=== PATIENT | female | born 1975 | race Caucasian/White ===

== ENCOUNTER 2016-03-26 09:52 | Emergency (ER) | payer OTHER, MEDICARE ==
[~2016-03-26] VITALS: Ht 152.4 cm; Wt 83.0 kg
[~2016-03-26 09:52] MED LIST: AFRIN PUMPMIST15 ML NASB; ALBUTEROL0.09 MG/A1 INH; AMOXIL 875 MG875 MG PO; AZITHROMYCIN250 M1 PO; BENZONATATE200 MG PO; BENZTROPINE MESY1 M1 PO; BENZTROPINE1 MG PO; CORTISPORIN 1%-10 M1 AS; DAILY MULTIPLE1 EACH PO; FERROUS SULFAT325 M3 PO; FLU VACCINE 0.0.5 ML IM; GABAPENTIN300 M2 PO; IBUPROFEN600 M1 PO; INTEGRA-F1 CAP PO; LATUDA20 M1 PO; LATUDA60 M1 PO; LATUDA80 MG PO; MAGNESIUM250 M2 PO; MEDROL 2 MG TABL2 MG PO; MEDROL DOSEPAK1 PAC PO; METFORMIN HCL500 M4 PO; METFORMIN HYDR500 M1 PO; MOBIC15 M1 PO; MOBIC15 MG PO; NORFLEX100 MG PO; NOVAPLUS V0.09 MG/Ac INH; PREDNICOT20 MG PO; PREDNISONE 20MG20 MG PO; PROVENTIL0.09 MG/A1 INH; ROBITUSSIN AC SY5 ML PO; ROBITUSSIN W/CO10 ML PO; SYNTHROID112 MCG PO; SYNTHROID125 MCG PO; TESSALON PERLE100 MG PO; TUMS500 MG PO; VITAMIN D250000 UNIT PO; VITAMIN D50000 IU PO; VOLTAREN75 MG PO; ZITHROMAX Z-PA250 M1 PO
[2016-03-26 09:55] VITALS: BP 100/68
--- NOTE | 2016-03-26 10:02 | ED GENERAL ADULT ---
History of Present Illness General Chief Complaint: Upper Respiratory Sx/Fever Stated Complaint: "I HAVE A COLD" Source: patient Exam Limitations: no limitations Vital Signs & Intake/Output Vital Signs & Intake/Output Vital Signs Date Time Temp Pulse Resp B/P Pulse O2 O2 Flow FiO2 Ox Delivery Rate 03/26 0955 97.7 66 20 100/68 98 Room Air Allergies Coded Allergies: aripiprazole (UNKNOWN 06/21/15) ascorbic acid ((FROM SMOKERS) 06/21/15) vitamin E (d-alpha tocopherol) (VITAMIN E) ((FROM SMOKERS) 06/21/15) Uncoded Allergies: DUST (DIFFICULTY BREATHING 01/05/14) PEANUT BUTTER (UNKNOWN- PT SAYS SHE DOES EAT PEANUTS 04/11/14) Reconcile Medications Azithromycin (Zithromax) 250 MG TABLET 1 DP PO AD brochitis 2 the first day followed by 1 for days 2-5 Benztropine Mesylate 1 MG TABLET 1 TAB PO BID MENTAL HEALTH (Reported) Ergocalciferol (Vitamin D2) (Vitamin D2) 50,000 UNIT CAPSULE 1 CAP PO Q 2 WEEKS SUPPLEMENT (Reported) Ferrous Sulfate 325 MG (65 MG IRON) TABLET 1 TAB PO DAILY SUPPLEMENT ( Reported) Gabapentin 300 MG CAPSULE 1 CAP PO BID MENTAL HEALTH (Reported) Ibuprofen 600 MG TABLET 1 TAB PO TID PRN PAIN (Reported) with food Levothyroxine Sodium (Synthroid) 125 MCG TABLET 1 TAB PO DAILY AC THYROID ( Reported) Lurasidone HCl (Latuda) 20 MG TABLET 1 TAB PO QPM MENTAL HEALTH (Reported) LURASIDONE HCL (Latuda) 40 MG TABLET 1 TAB PO QPM MENTAL HEALTH (Reported) Magnesium Oxide (Magnesium) 250 MG TABLET 1 TAB PO DAILY SUPPLEMENT (Reported ) Meloxicam (Mobic) 15 MG TABLET 1 TAB PO DAILY PRN PAIN/INFLAMMATION Metformin HCl (Metformin HCl ER) 500 MG TAB.ER.24H 1 TAB PO 1800 DIABETES ( Reported) Multivitamin (Daily Multiple Vitamin) 1 EACH TABLET 1 TAB PO DAILY SUPPLEMENT (Reported) Triage Note: PT TO ED STATES "I HAVE A COLD" X 1 MONTH. HAS BEEN TAKING OTC MEDS WITH SOME RELIEF. DID NOT CALL PCP. Triage Nurses Notes Reviewed? yes Onset: Abrupt Duration: week(s): Timing: recent history : No Patient currently breastfeeds: No HPI: 03/26/16 10:44 am This is a 40-year-old female who presents to the emergency department with cough congestion and malaise has been going on for approximately 4 weeks. She has a past medical history of thyroid cancer and anxiety. She also has psychiatric issues according to the patient. she denies chest pain difficulty breathing fever or significant yellow sputum production. She does not smoke and has no possibility of according to the patient. She denies any drug allergies. She does have a sore throat. On physical exam she has some nasal congestion. Lungs are essentially clear. The onset of the symptoms were abrupt , the duration has been for weeks, the severity is significant as her symptoms required her to come to the emergency department for care. She was treated with a single dose of Decadron and placed on a Z-Chandan and will follow up with her doctor in the next week if she is not better Past History Travel History Traveled to [facility] past 21 day No Medical History Any Pertinent Medical History? see below for history Neurological: NONE EENT: NONE Cardiovascular: NONE Respiratory: asthma Gastrointestinal: GERD Hepatic: NONE Renal: NONE Musculoskeletal: BACK PAIN Psychiatric: bipolar disease, depression, schizo affective disorder, ptsd Endocrine: hypothyroidism Blood Disorders: NONE Cancer(s): thyroid cancer History of MRSA: No History of VRE: No History of CDIFF: No Tetanus Vaccine: 10/15/12 Surgical History Surgical History: THYROIDECTOMY Psychosocial History Who do you live with Family Services at Home None What is your primary language Hebrew Tobacco Use: Never used ETOH Use: denies use Illicit Drug Use: denies illicit drug use Family History Hx Contributory? No Review of Systems Review of Systems Constitutional: Denies: fever. EENTM: Reports: nasal congestion. Denies: visual changes. Respiratory: Denies: short of breath, sputum production. Cardiovascular: Denies: chest pain. GI: Reports: no symptoms. Genitourinary: Reports: no symptoms. Musculoskeletal: Reports: no symptoms. Skin: Reports: no symptoms. Neurological/Psychological: Reports: no symptoms. Hematologic/Endocrine: Reports: no symptoms. Immunologic/Allergic: Reports: no symptoms. Physical Exam Physical Exam General Appearance: well developed/nourished, alert, awake, anxious, mild distress Head: atraumatic, normal appearance Eyes: Bilateral: normal appearance, PERRL, EOMI. Ears, Nose, Throat: pharyngeal erythema, nasal congestion Neck: normal inspection, supple, full range of motion Respiratory: normal breath sounds, chest non-tender, no respiratory distress Cardiovascular: regular rate/rhythm Peripheral Pulses: 4+ radial (R), 4+ radial (L) Gastrointestinal: soft, non-tender Back: normal inspection, normal range of motion Extremities: normal inspection, normal range of motion Neurologic/Psych: no motor/sensory deficits, awake, alert, oriented x 3 Skin: intact, normal color, warm/dry Core Measures ACS in differential dx? No CVA/TIA Diagnosis: No Severe Sepsis Present: No Septic Shock Present: No Progress Differential Diagnoses I considered the following diagnoses in my evaluation of the patient: [ Bronchitis, pneumonia, asthma, allergic reaction] Plan of Care: Current Medications Sig/Irene Start time Last Medication Dose Stop Time Status Admin Dexamethasone 8 MG ONCE ONE 03/26 1045 UNVr (Decadron) 03/26 1046 Initial ED EKG: none Departure Departure Disposition: HOME OR SELF CARE Condition: Stable Clinical Impression Primary Impression: Bronchitis Referrals: RUTH JIMÉNEZ MD (PCP/Family) Departure Forms: Customer Survey General Discharge Information Prescriptions: Current Visit Scripts Azithromycin (Zithromax) 1 DP PO AD #6 TAB 2 the first day followed by 1 for days 2-5 Critical Care Note Critical Care Note Critical Care Time: non-applicable
[2016-03-26] MEDS ORDERED: ZITHROMAX250 M2 PO (10:47)
== END 2016-03-26 10:52 ==
LOC: ERH 09:52
DX: J40 Bronchitis, not specified as acute or chronic (principal)

== ENCOUNTER 2016-05-11 13:59 | Emergency (ER) | payer OTHER, MEDICARE ==
[~2016-05-11 13:59] MED LIST changes: +ZITHROMAX250 M2 PO
[2016-05-11 14:07] VITALS: BP 113/72
--- NOTE | 2016-05-11 15:10 | RADIOLOGY REPORT ---
EXAMINATION: Right index finger. CLINICAL INFORMATION: Pain in the index finger. COMPARISON: None TECHNIQUE: Three views of the right index finger. FINDINGS: No fracture. No dislocation. Bone and joint is normal. No soft tissue abnormality. IMPRESSION: Normal right index finger.
--- NOTE | 2016-05-11 15:58 | ED UPPER/LOWER EXTREMITY COMPL ---
History of Present Illness General Chief Complaint: Hand or Wrist Injury Stated Complaint: FINGER PAIN Source: patient Exam Limitations: no limitations Vital Signs & Intake/Output Vital Signs & Intake/Output Vital Signs Date Time Temp Pulse Resp B/P Pulse O2 O2 Flow FiO2 Ox Delivery Rate 05/11 1407 97.7 84 20 113/72 99 Room Air Allergies Coded Allergies: aripiprazole (UNKNOWN 06/21/15) ascorbic acid ((FROM SMOKERS) 06/21/15) vitamin E (d-alpha tocopherol) (VITAMIN E) ((FROM SMOKERS) 06/21/15) Uncoded Allergies: DUST (DIFFICULTY BREATHING 01/05/14) PEANUT BUTTER (UNKNOWN- PT SAYS SHE DOES EAT PEANUTS 04/11/14) Reconcile Medications Azithromycin (Zithromax) 250 MG TABLET 1 DP PO AD brochitis 2 the first day followed by 1 for days 2-5 Benztropine Mesylate 1 MG TABLET 1 TAB PO BID MENTAL HEALTH (Reported) Ergocalciferol (Vitamin D2) (Vitamin D2) 50,000 UNIT CAPSULE 1 CAP PO Q 2 WEEKS SUPPLEMENT (Reported) Ferrous Sulfate 325 MG (65 MG IRON) TABLET 1 TAB PO DAILY SUPPLEMENT ( Reported) Gabapentin 300 MG CAPSULE 1 CAP PO BID MENTAL HEALTH (Reported) Ibuprofen 600 MG TABLET 1 TAB PO TID PRN PAIN (Reported) with food Levothyroxine Sodium (Synthroid) 125 MCG TABLET 1 TAB PO DAILY AC THYROID ( Reported) Lurasidone HCl (Latuda) 20 MG TABLET 1 TAB PO QPM MENTAL HEALTH (Reported) LURASIDONE HCL (Latuda) 40 MG TABLET 1 TAB PO QPM MENTAL HEALTH (Reported) Magnesium Oxide (Magnesium) 250 MG TABLET 1 TAB PO DAILY SUPPLEMENT (Reported ) Meloxicam (Mobic) 15 MG TABLET 1 TAB PO DAILY PRN PAIN/INFLAMMATION Metformin HCl (Metformin HCl ER) 500 MG TAB.ER.24H 1 TAB PO 1800 DIABETES ( Reported) Multivitamin (Daily Multiple Vitamin) 1 EACH TABLET 1 TAB PO DAILY SUPPLEMENT (Reported) Triage Note: PT PRESENTS TO ER FOR RIGHT INDEX FINGER PAIN SINCE WEDNESDAY. PT STATES SHE SLAMMED HER FINGER INTO THE CAR DOOR. PT STATES SHE TOOK IBUPROFEN WHEN IT HAPPEN BUT HAS NOT TAKEN ANYTHING SINCE THE INJURY. PT STATES FINGER IS PAINFUL TO MOVE. PT REFUSED PAIN MEDS AT TRIAGE Triage Nurses Notes Reviewed? yes Onset: Abrupt Duration: constant Timing: recent history Severity: moderate Severity Numbers: 5 Method of Injury: direct blow : No Patient currently breastfeeds: No HPI: Patient is a 40-year-old female who presents emergency room stating that she accidentally closed the car door and struck the this last picked of her right second digit resulting acute onset of pain. Skin is intact patient was taking ibuprofen 2 days ago with relief of symptoms. Patient is concerned of generalized paresthesia to the trauma site Pain is worse with finger movements. No nail involvement. Patient is right arm dominant. (CLAUDIA HARTLEY) Past History Travel History Traveled to [place] past 21 day No Medical History Any Pertinent Medical History? see below for history Neurological: NONE EENT: NONE Cardiovascular: NONE Respiratory: asthma Gastrointestinal: GERD Hepatic: NONE Renal: NONE Musculoskeletal: BACK PAIN Psychiatric: bipolar disease, depression, schizo affective disorder, ptsd Endocrine: hypothyroidism Blood Disorders: NONE Cancer(s): thyroid cancer History of MRSA: No History of VRE: No History of CDIFF: No Tetanus Vaccine: 10/15/12 Surgical History Surgical History: THYROIDECTOMY Psychosocial History Who do you live with Family Services at Home None What is your primary language Albanian Tobacco Use: Never used Family History Hx Contributory? No (CLAUDIA HARTLEY) Review of Systems Review of Systems Constitutional: Reports: no symptoms. EENTM: Reports: no symptoms. Respiratory: Reports: no symptoms. Cardiovascular: Reports: no symptoms. Gastrointestinal/Abdominal: Reports: no symptoms. Genitourinary: Reports: no symptoms. Musculoskeletal: Reports: see HPI, joint pain. Skin: Reports: no symptoms. Neurological/Psychological: Reports: see HPI, paresthesia. Hematologic/Endocrine: Reports: no symptoms. Immunological: Reports: no symptoms. All Other Systems: Reviewed and Negative (CLAUDIA HARTLEY) Physical Exam Physical Exam General Appearance: no apparent distress, alert Neurologic/Tendon: normal sensation, normal motor functions, normal tendon functions, responds to pain, no evidence tendon injury, no pulse deficit Comments: Well-developed well-nourished no apparent distress. HEENT: Atraumatic, extraocular motion intact Neck: Supple, no lymphadenopathy Back: Nontender Respiratory: No respiratory distress Extremities: Right wrist nontender normal inspection full active range of motion Right finger second digit noted mild swelling and point tenderness to the distal interphalangeal joint mild decreased active range of motion of flexion no nail involvement sensation decreased generalized Neuro: Alert and oriented x3 Psych: Mood affect normal, normal memory normal judgment. (CLAUDIA HARTLEY) Progress Differential Diagnosis: arterial insufficiency, compartment syndrome, contusion, dislocation, DVT, fracture, gout, septic arthritis, sprain, tendon injury Plan of Care: Current Medications Sig/Irene Start time Last Medication Dose Stop Time Status Admin Ibuprofen 600 MG ONCE ONE 05/11 163 UNVr (Motrin) 05/11 1631 No osseous injury noted to the tenderness site (CLAUDIA HARTLEY) Diagnostic Imaging: Viewed by Me: Radiology Read. Radiology Impression: no fracture Comments: PATIENT: HUSSEIN ROMERO PRESENT AGE: 40 PATIENT ACCOUNT NO: [id number] : 75 LOCATION: [facility] ORDERING PHYSICIAN: MARAL ASTUDILLO DO (TBS) SERVICE DATE: 05/11/16 EXAM TYPE: RAD - XRY-FINGERS, RIGHT EXAMINATION: Right index finger. CLINICAL INFORMATION: Pain in the index finger. COMPARISON: None TECHNIQUE: Three views of the right index finger. FINDINGS: No fracture. No dislocation. Bone and joint is normal. No soft tissue abnormality. IMPRESSION: Normal right index finger. (CLAUDIA HARTLEY) Departure Departure Disposition: HOME OR SELF CARE Condition: Stable Clinical Impression Primary Impression: Contusion of right index finger Referrals: RUTH JIMÉNEZ MD (PCP/Family) Additional Instructions: As discussed begin icing the area directly 20 minutes every 2 hours. Begin over -the-counter ibuprofen 3 tablets of 200 mg equaling 600 mg every 8 hours for pain and inflammation. If no better one-week follow-up with your primary care doctor. If symptoms worsen return to emergency room. Departure Forms: Customer Survey General Discharge Information (CLAUDIA HARTLEY) PA/DUCO POLISHER Co-Sign Statement Statement: ED Attending supervision documentation- [] I saw and evaluated the patient. I have also reviewed all the pertinent lab results and diagnostic results. I agree with the findings and the plan of care as documented in the PA's/DUCO POLISHER's documentation. [X] I have reviewed the ED Record and agree with the PA's/DUCO POLISHER's documentation. [] Additions or exceptions (if any) to the PAs/DUCO POLISHER's note and plan are summarized below: [] (MARAL ASTUDILLO DO
== END 2016-05-11 16:35 ==
LOC: ERH 13:59
DX: S60.021A Contusion of right index finger without damage to nail, initial encounter (principal); W23.0XXA Caught, crushed, jammed, or pinched between moving objects, initial encounter
CPT/HCPCS: 73140-RT

== ENCOUNTER 2016-06-28 08:16 | Emergency (ER) | payer OTHER, MEDICARE ==
[~2016-06-28] VITALS: Ht 152.4 cm; Wt 83.0 kg
[2016-06-28 08:29] VITALS: BP 117/70
--- NOTE | 2016-06-28 08:53 | ED EAR COMPLAINT ---
History of Present Illness General Chief Complaint: General Adult Stated Complaint: SORE THROAT,EAR PAIN Source: patient, old records Exam Limitations: no limitations Vital Signs & Intake/Output Vital Signs & Intake/Output Vital Signs Date Time Temp Pulse Resp B/P B/P Pulse O2 O2 Flow FiO2 Mean Ox Delivery Rate 06/28 0829 97.1 66 20 117/70 97 Room Air Allergies Coded Allergies: aripiprazole (UNKNOWN 06/21/15) ascorbic acid ((FROM SMOKERS) 06/21/15) vitamin E (d-alpha tocopherol) (VITAMIN E) ((FROM SMOKERS) 06/21/15) Uncoded Allergies: DUST (DIFFICULTY BREATHING 01/05/14) PEANUT BUTTER (UNKNOWN- PT SAYS SHE DOES EAT PEANUTS 04/11/14) Reconcile Medications Amoxicillin 250 MG CAPSULE 1 CAP PO TID OTITIS MEDIA Ascorbic Acid (Ascorbic Acid With Rh) 500 MG TABLET 1 TAB PO DAILY VITAMIN SUPPORT (Reported) Benztropine Mesylate 1 MG TABLET 1 TAB PO BID MENTAL HEALTH (Reported) Ergocalciferol (Vitamin D2) (Vitamin D2) 50,000 UNIT CAPSULE 1 CAP PO Q 2 WEEKS SUPPLEMENT (Reported) Ferrous Sulfate 325 MG (65 MG IRON) TABLET 1 TAB PO DAILY SUPPLEMENT ( Reported) Gabapentin 300 MG CAPSULE 1 CAP PO BID MENTAL HEALTH (Reported) Levothyroxine Sodium (Synthroid) 125 MCG TABLET 1 TAB PO DAILY AC THYROID ( Reported) Lurasidone HCl (Latuda) 60 MG TABLET 1 TAB PO QPM MENTAL HEALTH (Reported) Lurasidone HCl (Latuda) 20 MG TABLET 1 TAB PO DAILY MENTAL HEALTH (Reported) Metformin HCl (Metformin HCl ER) 500 MG TAB.ER.24H 1 TAB PO 1800 DIABETES ( Reported) Multivitamin (Daily Multiple Vitamin) 1 EACH TABLET 1 TAB PO DAILY SUPPLEMENT (Reported) Triage Note: PT TO ED C/O B/L EAR PAIN AND SORE THROAT X A COUPLE WEEKS. AFEBRILE. Triage Nurses Notes Reviewed? yes : No Patient currently breastfeeds: No HPI: Patient presents with worsening earache in the right ear. Patient states that it feels like somebody is poking her in the ear. The symptoms have been there for a few weeks however they worsen 2 days ago. She days ago she is also developed a sore throat. This was throat is an achy sensation. There is no aggravating or mitigating factors. There is no difficulty swallowing or breathing. There is no radiation of the pain. She rates the pain at a 3 out of 10. There are no fevers or chills. Past History Travel History Traveled to [place] past 21 day No Medical History Any Pertinent Medical History? see below for history Neurological: NONE EENT: NONE Cardiovascular: NONE Respiratory: asthma Gastrointestinal: GERD Hepatic: NONE Renal: NONE Musculoskeletal: BACK PAIN Psychiatric: bipolar disease, depression, schizo affective disorder, ptsd Endocrine: hypothyroidism Blood Disorders: NONE Cancer(s): thyroid cancer History of MRSA: No History of VRE: No History of CDIFF: No Tetanus Vaccine: 10/15/12 Surgical History Surgical History: THYROIDECTOMY Psychosocial History Who do you live with Family Services at Home None What is your primary language Setswana Tobacco Use: Quit >30 days ago ETOH Use: denies use Illicit Drug Use: denies illicit drug use Family History Hx Contributory? No Review of Systems Review of Systems Constitutional: Reports: no symptoms. EENTM: Reports: see HPI, ear pain, throat pain. Respiratory: Reports: no symptoms. Cardiovascular: Reports: no symptoms. GI: Reports: no symptoms. Musculoskeletal: Reports: no symptoms. Neurological/Psychological: Reports: no symptoms. Immunologic/Allergic: Reports: no symptoms. Physical Exam Physical Exam General Appearance: well developed/nourished, alert, awake Head: atraumatic, normal appearance Eyes: Bilateral: PERRL, EOMI. Ears: Left: canal normal, Tympanic normal. Right: erythema, Tympanic dull, Tympanic red. Mouth/Throat: PHARYNGEAL ERYTHMEA, NO TONSILAR EXUDATES Neck: normal inspection, supple, SHOTTY LAD Cardiovascular/Respiratory: normal breath sounds, normal peripheral pulses, regular rate/rhythm, no respiratory distress Neurologic/Psych: no motor/sensory deficits, awake, alert, oriented x 3, normal gait, normal mood/affect Progress Differential Diagnoses I considered the following diagnoses in my evaluation of the patient: [Otitis media, otitis externa, pharyngitis] Plan of Care: Orders Procedure Date/time Status THROAT CULTURE W/QUICK STREP 06/29 0732 Active Current Medications Sig/Irene Start time Last Medication Dose Stop Time Status Admin Amoxicillin 250 MG ONCE ONE 06/28 09 UNVr (Amoxil) 06/28 900 Initial ED EKG: none Departure Departure Disposition: HOME OR SELF CARE Condition: Stable Clinical Impression Primary Impression: Pharyngitis Secondary Impressions: Otitis media Referrals: RUTH JIMÉNEZ MD (PCP/Family) Additional Instructions: DRINK PLENTY OF FLUIDS RETURN IF SYMPTOMS WORSEN OR FOR ANY CONCERNS Departure Forms: Customer Survey General Discharge Information Prescriptions: Current Visit Scripts Amoxicillin 1 CAP PO TID #21 CAP
[2016-06-28] MEDS ORDERED: ASCORBIC ACID500 M3 PO (08:58)
[2016-06-28] MEDS ORDERED: AMOXICILLIN250 M3 PO (09:01)
== END 2016-06-28 09:09 ==
LOC: ERH 08:16
DX: J02.9 Acute pharyngitis, unspecified (principal); H66.91 Otitis media, unspecified, right ear; Z87.891 Personal history of nicotine dependence